=== PATIENT | female | born 1950 ===

== ENCOUNTER 2018-09-09 07:13 | Day surgery (SDC) | payer OTHER ==
[2018-09-09 07:45] VITALS: BMI 27.4
[2018-09-09 08:12] VITALS: O2SAT 100
[2018-09-09] MEDS ORDERED: Lactated Ringer's 1,000 ML IV ONE (10:20)
--- NOTE | 2018-09-09 10:22 | CP.SDSHP ---
Same Day Surgery H & P - History Proposed Procedure: EGD - Previous Medical/Surgical History Cardiac: Hypertension Neuro: Other Misc: Other Pain: 4.Moderate Pain Previous Surgical History: S/P HYSTRECTOMY - Allergies Allergies: Allergies aspirin Allergy (Verified 09/09/18 07:45) SWELLING - Physical Exam General Appearance: N Vital Signs: Vital Signs 09/09/18 07:55 Temperature 97.5 F L Pulse Rate 73 Respiratory 17 Rate Blood Pressure 130/64 O2 Sat by Pulse 100 Oximetry Mental Status: Alert & Oriented x3 Neuro: WNL Heart: Other Lungs: WNL GI: Other - {Optional Preform as Required} Breast: WNL Abdomen: Other Rectal: Other Integument: WNL : WNL Ortho: Other ENT: WNL - Impression Pt. Evaluated Today:Candidate for Anesthesia & Procedure: Yes - Date & Time Time: 10:22 Short Stay Discharge - Short Stay Discharge Admitting Diagnosis/Reason for Visit: FUNCTIONAL DYSPEPSIA Disposition: HOME/ ROUTINE
[2018-09-09] MEDS ORDERED: Propofol 10 mg/ml Inj (20 ML) ONE (10:26)
[2018-09-09] MEDS ORDERED: Belladonna-Phenobarbital PO ONE (10:50)
[2018-09-09 11:32] VITALS: BP 118/62; PULSE 64; RESP 16; TEMP 97
== END 2018-09-09 11:29 | disposition home or self-care (01) ==
LOC: C.ENDO 07:13
PROVIDERS: ATTEND Specialist
DX: K21.0 Gastro-esophageal reflux disease with esophagitis (principal); K44.9 Diaphragmatic hernia without obstruction or gangrene; K29.50 Unspecified chronic gastritis without bleeding; I10 Essential (primary) hypertension
CPT/HCPCS: 43239; 88305; J2001; J2704; J7120

== ENCOUNTER 2018-09-14 07:11 | Day surgery (SDC) | payer OTHER ==
[2018-09-14 07:58] VITALS: TEMP 98
--- NOTE | 2018-09-14 09:45 | CP.SDSHP ---
Same Day Surgery H & P - History Proposed Procedure: COLONSCOPY Pre-Op Diagnosis: SEE NOTES - Previous Medical/Surgical History Cardiac: Hypertension, ASHD/CAD Endocrine/Metabolic: Other Pain: 4.Moderate Pain - Allergies Allergies: Allergies aspirin Allergy (Verified 09/09/18 07:45) SWELLING - Physical Exam General Appearance: N Vital Signs: Vital Signs 09/14/18 07:44 Temperature 98 F Pulse Rate 87 Respiratory 16 Rate Blood Pressure 116/70 O2 Sat by Pulse 97 Oximetry Mental Status: Alert & Oriented x3 Neuro: WNL Heart: Other Lungs: WNL GI: Other - {Optional Preform as Required} Breast: WNL Abdomen: Other Rectal: Other Integument: WNL : WNL Ortho: Other ENT: WNL - Impression Pt. Evaluated Today:Candidate for Anesthesia & Procedure: Yes - Date & Time Time: 09:44 Short Stay Discharge - Short Stay Discharge Admitting Diagnosis/Reason for Visit: CHANGE IN BOWEL HABIT Disposition: HOME/ ROUTINE
[2018-09-14] MEDS ORDERED: Propofol 10 mg/ml Inj (20 ML) ONE (09:49)
[2018-09-14 09:54] VITALS: O2SAT 100
[2018-09-14] MEDS ORDERED: Lidocaine Hydrochloride 5 ML INJ ONE (10:05)
[2018-09-14] MEDS ORDERED: Belladonna-Phenobarbital PO ONE (10:40)
[2018-09-14 11:02] VITALS: BP 112/67; PULSE 77; RESP 13
== END 2018-09-14 11:00 | disposition home or self-care (01) ==
LOC: C.ENDO 07:11
PROVIDERS: ATTEND Specialist
DX: R19.4 Change in bowel habit (principal); K58.9 Irritable bowel syndrome, unspecified
CPT/HCPCS: 45380; 88305; 88313; 88342; J2704